=== PATIENT | female | born 1990 | race Native Hawaiian/Other Pacific Islander ===

== ENCOUNTER 2022-03-05 10:33 | Outpatient (CLI) | payer OTHER, SELFPAY ==
[2022-03-05 21:56] LABS: Albumin* 4.4 g/dL (3.3-5.0)
[2022-03-05 21:57] LABS: Chloride* 103 mmol/L (96-114); Potassium* 3.9 mmol/L (3.6-5.1); Sodium* 138 mmol/L (135-149)
[2022-03-05 21:59] LABS: Aspartate Amino Transferase* 23 U/L (12-35); Bilirubin Total* 0.4 mg/dL (0.1-1.5); Carbon Dioxide* 30 mmol/L (20-32); Creatinine* 0.5 mg/dL (0.5-1.5); Estimated Glomerular Filt Rate 128 ml/min
[2022-03-05 22:00] LABS: Alanine Aminotransferase* 20 U/L (4-35); Alkaline Phosphatase* 60 U/L (40-150); Blood Urea Nitrogen* 7 mg/dL (5-24); Calcium* 9.6 mg/dL (8.4-10.6); Glucose* 117 mg/dL (60-115); Total Protein* 6.9 g/dL (6.0-8.3)
== END 2022-03-05 10:34 | disposition home or self-care (01) ==
LOC: LKVREF 10:34
PROVIDERS: PCP Family Medicine; Visit Provider Family Medicine
DX: Z01.818 Encounter for other preprocedural examination (principal)
CPT/HCPCS: 80053

== ENCOUNTER 2023-04-01 08:42 | Outpatient (CLI) | payer OTHER, SELFPAY | END 2023-04-01 08:43 | disposition home or self-care (01) | PROVIDERS: PCP Family Medicine; Visit Provider Family Medicine | DX: Z00.00 Encounter for general adult medical examination without abnormal findings (principal); R53.83 Other fatigue; F31.9 Bipolar disorder, unspecified; D61.818 Other pancytopenia | CPT/HCPCS: 80053; 80061; 82306; 84443 ==

== ENCOUNTER 2024-08-24 11:19 | Outpatient (CLI) | payer OTHER, SELFPAY | END 2024-08-24 11:20 | disposition home or self-care (01) | LOC: LKVREF 11:21 | PROVIDERS: PCP Family Medicine; Visit Provider Family Medicine | DX: F31.9 Bipolar disorder, unspecified (principal); R53.83 Other fatigue; Z13.228 Encounter for screening for other metabolic disorders; Z13.6 Encounter for screening for cardiovascular disorders; Z13.29 Encounter for screening for other suspected endocrine disorder | CPT/HCPCS: 80053; 80061; 84443 ==

== ENCOUNTER 2024-09-07 10:28 | Outpatient (CLI) | payer OTHER, SELFPAY ==
--- NOTE | 2024-09-07 10:45 | CRLHL7_ITS ---
For Patients: As a result of the Century Cures Act, medical imaging exams and procedure reports are released immediately into your electronic medical record. You may view this report before your referring provider. If you have questions, please contact your health care provider. CLINICAL HISTORY: RIGHT breast lump. COMPARISON: None TECHNIQUE: Digital BILATERAL mammogram in 4 projections with computer-aided detection. Tomosynthesis was used in this interpretation. Real-time ultrasound imaging of RIGHT breast with imaging documentation. BREAST COMPOSITION: The breasts are almost entirely fatty. FINDINGS: 3D cc/MLO bilateral mammogram images submitted. No suspicious mass or architectural distortion. No suspicious calcifications or adenopathy. Targeted right breast ultrasound performed in the area of concern at 7 o`clock 2 cm from the nipple. Normal fibroglandular tissue. No fluid collection or mass. No suspicious findings. IMPRESSION: No evidence of malignancy. RECOMMENDATIONS: Age-appropriate screening mammography. A lay language report of this examination will be provided to the patient. BI-RADS Category 1. Negative. Dictated by Fortunato Hdz MD @ 09/07/2024 11:32:32 AM Dictated by: Fortunato Hdz MD @ 09/07/2024 11:32:41 (Electronically Signed)
--- NOTE | 2024-09-07 11:15 | CRLHL7_ITS ---
For Patients: As a result of the Century Cures Act, medical imaging exams and procedure reports are released immediately into your electronic medical record. You may view this report before your referring provider. If you have questions, please contact your health care provider. CLINICAL HISTORY: RIGHT breast lump. COMPARISON: None TECHNIQUE: Digital BILATERAL mammogram in 4 projections with computer-aided detection. Tomosynthesis was used in this interpretation. Real-time ultrasound imaging of RIGHT breast with imaging documentation. BREAST COMPOSITION: The breasts are almost entirely fatty. FINDINGS: 3D cc/MLO bilateral mammogram images submitted. No suspicious mass or architectural distortion. No suspicious calcifications or adenopathy. Targeted right breast ultrasound performed in the area of concern at 7 o`clock 2 cm from the nipple. Normal fibroglandular tissue. No fluid collection or mass. No suspicious findings. IMPRESSION: No evidence of malignancy. RECOMMENDATIONS: Age-appropriate screening mammography. A lay language report of this examination will be provided to the patient. BI-RADS Category 1. Negative. Dictated by Fortunato Hdz MD @ 09/07/2024 11:50:57 AM (Electronically Signed)
== END 2024-09-07 10:29 | disposition home or self-care (01) ==
LOC: MAMMO 10:30
PROVIDERS: PCP Family Medicine; Visit Provider Family Medicine
DX: N63.10 Unspecified lump in the right breast, unspecified quadrant (principal); R92.8 Other abnormal and inconclusive findings on diagnostic imaging of breast
CPT/HCPCS: 76642; 77066; G0279

== ENCOUNTER 2024-10-26 09:52 | Outpatient (CLI) | payer OTHER, SELFPAY | END 2024-10-26 09:53 | disposition home or self-care (01) | LOC: LKVREF 09:52 | PROVIDERS: PCP Family Medicine; Visit Provider Family Medicine | DX: Z01.818 Encounter for other preprocedural examination (principal) | CPT/HCPCS: 80048 ==

== ENCOUNTER 2024-11-02 06:01 | Day surgery (SDC) | payer OTHER, SELFPAY ==
[2024-11-02] VITALS (16 sets, daily range): BP systolic 100–132; BP diastolic 54–99; PULSE 62–83; RESP 10–16; TEMP 36.1–36.9; O2SAT 94–99; BMI 37.2
[2024-11-02] MEDS: SODIUM CHLORIDE 0.9 % (FLUSH) 10 ML SYRINGE IVF (06:44)
[2024-11-02] MEDS: LACTATED RINGERS 1000 ML 1,000 ML 100 ML IV (06:45)
--- NOTE | 2024-11-02 07:24 | W.PM.H&PU ---
History & Physical Update History & Physical Update H&P Reviewed and patient assessed: No changes noted
--- NOTE | 2024-11-02 07:56 | SUR.OPER ---
PATIENT QUESTIONS ANSWERED SATISFACTORILY PREOPERATIVELY. PATIENT BROUGHT TO OR #1 PER CART. Patient positioned supine on OR #1 bed. The perioperative team supported arms bilaterally on arm boards. Final approval of positioning by surgeon.
[2024-11-02] MEDS: BUPIVACAINE 0.25% 30 ML 10 ML INJECTION (08:06)
--- NOTE | 2024-11-02 08:20 | PM.GSPRC ---
Operative Note Date of procedure: 11/02/24 Pre-op diagnosis: Incisional hernia Post-op diagnosis: Same Type of Procedure: Open incisional hernia repair Indications: Patient is a 34-year-old female who presented to clinic with a symptomatic hernia at a previous port site in the right upper quadrant. Different treatment options were reviewed with the patient with her deciding to pursue operative intervention. Risks and benefits of operative intervention were discussed at length with the patient. Risks included but was not limited to: Bleeding, infection, risk of damage to surrounding structures, possible need for additional procedures, risk of recurrence and postoperative complications such as pneumonia, pulmonary emboli or MA. All questions and concerns were addressed with the patient agreeing to proceed. Procedure Description: After discussing the risks and benefits of the procedure, the patient signed informed consent.? The operative site was marked and the patient was brought to the operating room and placed on the operating table in supine position.? Care was taken to pad the patient's pressure points.?? The patient was then intubated by anesthesia.?? The operative site was then prepped and draped in the usual sterile fashion.? A time-out was then performed. A transverse incision was made over the previously well-healed scar in the right upper quadrant. This incision was extended medially. Incision measured 3 cm in size. Dissection was continued down through subcutaneous tissue with cautery. The anterior fascia was cleared off and palpated. A small 7 mm defect was seen within the anterior fascia. This was repaired with several 0 Nurolon sutures in a myeh-rusv-znnaw technique. No other defects were appreciated during the procedure or upon palpation of the area. 0.5% Marcaine was used to anesthetize the fascia and surgical incision. Hemostasis was assured with cautery. The incision was then closed in layers of interrupted 3 0 Vicryl in running 4 O Monocryl. Sterile dressings were then applied. ? The patient was then woken and transported to the recovery area in stable condition. ? The patient tolerated the procedure well. Findings: 7 mm defect at previous right upper quadrant port site, repaired primarily. Anesthesia: GETA Surgeon: Sarita Jeronimo MD Estimated blood loss (mL): 5 Condition: stable Disposition: PACU
--- NOTE | 2024-11-02 08:31 | P.ANES_ITS ---
Anesthesia Charges Start Date/Time Anesthesia Start Date: 11/02/24 Anesthesia Start Time: 07:23 Stop Date/Time Anesthesia Stop Date: 11/02/24 Anesthesia Stop Time: 08:27 Coding CPT Codes CPT Codes: ANESTH REPAIR OF HERNIA - 89866 ([id number]) P3 - PATIENT W/SEVERE SYS DISEASE, QK - PATHOLOGY TECH 2-4 CNCRNT ANES PROC
--- NOTE | 2024-11-02 08:31 | W.ANESCHARGE ---
Anesthesia Charges Start Date/Time Anesthesia Start Date: 11/02/24 Anesthesia Start Time: 07:23 Stop Date/Time Anesthesia Stop Date: 11/02/24 Anesthesia Stop Time: 08:27 Coding CPT Codes CPT Codes: ANESTH REPAIR OF HERNIA - 15309 ([id number]) P3 - PATIENT W/SEVERE SYS DISEASE, QK - GRAIN MILL PRODUCTS INSPECTOR 2-4 CNCRNT ANES PROC
[2024-11-02] MEDS: fentaNYL 100 MCG/2 ML inj 50 MCG IVP ×2 (08:46→09:00)
[2024-11-02] MEDS: ACETAMINOPHEN 325 MG TABLET 650 MG PO (09:50)
--- NOTE | 2024-11-02 10:12 | P.ANES_ITS ---
Anesthesia Charges Start Date/Time Anesthesia Start Date: 11/02/24 Anesthesia Start Time: 07:23 Stop Date/Time Anesthesia Stop Date: 11/02/24 Anesthesia Stop Time: 08:27 Coding CPT Codes CPT Codes: ANESTH REPAIR OF HERNIA - 31357 ([id number]) QK - PARKING ENFORCEMENT MANAGER 2-4 CNCRNT ANES PROC, QX - RECRUITING INTER[employer]HIP SVC W/ MD MED DIRECTION, P3 - PATIENT W/SEVERE SYS DISEASE
--- NOTE | 2024-11-02 10:12 | W.ANESCHARGE ---
Anesthesia Charges Start Date/Time Anesthesia Start Date: 11/02/24 Anesthesia Start Time: 07:23 Stop Date/Time Anesthesia Stop Date: 11/02/24 Anesthesia Stop Time: 08:27 Coding CPT Codes CPT Codes: ANESTH REPAIR OF HERNIA - 56669 ([id number]) QK - TEAM DRIVER 2-4 CNCRNT ANES PROC, QX - SENIOR STOCK PLAN ADMINISTRATOR SVC W/ MD MED DIRECTION, P3 - PATIENT W/SEVERE SYS DISEASE
== END 2024-11-02 10:39 | disposition home or self-care (01) ==
PROVIDERS: PCP Family Medicine; Visit Provider Surgery
PROC: (CPT 49591; principal; 2024-11-02 07:30)
DX: K43.2 Incisional hernia without obstruction or gangrene (principal)
CPT/HCPCS: 49591; 00752; 00832; A9270; J0665; J1100; J2250; J2405; J2704; J3010; J3490; J7120